=== PATIENT | male | born 1950 | race African-American/Black ===

== ENCOUNTER 2016-10-24 14:32 | Observation (INO) | payer MEDICARE ==
[~2016-10-24] VITALS: Ht 170.2 cm; Wt 51.0 kg
--- NOTE | ~2016-10-24 | ECH ---
Transthoracic Echocardiography Report (TTE) Demographics Patient Name ANDREA REINOSO Date of Study 10/26/2016 Patient Number [id number] Visit Number [id number] Date of 1950 Room Number 433 Accession Number [id number] Gender Male Age 66 year(s) Referring Tyrel Meyers Dealership Manager Taylor Garcia [facility] Physician Physician Interpreting Chilo Angel MD [employer] Sales Representative Physician Supervising Ordering Physician Tyrel Meyers MD, MD/P Nurse Stress Certified Surgical First Assistant Conclusions Summary Technically adequate exam. The estimated left ventricular ejection fraction is 60-65%. Diastolic assessment reveals Grade I diastolic dysfunction. Mild tricuspid regurgitation by color Doppler. There is moderate pulmonary hypertension. The pulmonary pressure (RVSP) is 53 mmHg. Procedure Type of Study TTE procedure:Echo Complete SF. Procedure Date Date: 10/26/2016 Start: 03:03 PM Technical Quality: Adequate visualization Indications:Fever. Additional Indications:EKG changes Appropriate Use Criteria: 9 Height: 67 inches Weight: 112 pounds BSA: 1.58 m Rhythm: Within normal limits HR: 96 bpm BP: 145/65 mmHg M-Mode/2D Measurements LV Diastolic Dimension: 4.18 cm LV Systolic Dimension: 2.68 cm LV Septum Diastolic: 0.88 cm LV PW Diastolic: 0.94 cm AO Root Dimension: 2.02 cm Cardiac Output: 3.59 l/min LA Dimension: 2.65 cm Cardiac Index: 2.27 l/min*m RV Diastolic Dimension: 3.21 cm LA volume index: 21 ml/m LVOT: 1.73 cm LVOT VTI: 15.9 cm RV Base: 2.5 cm LV Stroke volume: 37.36 ml RV Mid: 1.8 cm LV Stroke volume index: 23.65 ml/m RV Length: 6.7 cm Doppler Measurements AV Peak Velocity: 1.38 m/s MV Peak E-Wave: 0.62 m/s AV Peak Gradient: 7.62 mmHg MV Peak A-Wave: 1.06 m/s AV Mean Gradient: 4.78 mmHg MV E/A Ratio: 0.59 LVOT Peak Velocity: 0.82 m/s MV P1/2t: 56.9 msec AV Area (Continuity):1.61 cm MV Deceleration Time: 211.3 msec TR Velocity:3.55 m/s MV Area (PHT): 3.87 cm TR Gradient:50.41 mmHg PV Peak Velocity: 0.91 m/s Estimated RAP:3 mmHg PV Peak Gradient: 3.35 mmHg Estimated RVSP: 53 mmHg Estimated PASP: 53.41 mmHg E' Septal Velocity: 0.06 m/s A' Septal Velocity: 0.12 m/s E' Lateral Velocity: 0.08 m/s A' Lateral Velocity: 0.09 m/s RA Area: 8.51 cm Findings Left Ventricle The left ventricle is normal in size . Diastolic assessment reveals Grade I diastolic dysfunction. Right Ventricle Normal right ventricle structure and function. Left Atrium Normal left atrial size. Right Atrium Normal right atrial size. Mitral Valve Normal mitral valve structure and function. Trivial mitral regurgitation by color Doppler. Aortic Valve Normal aortic valve structure and function. Tricuspid Valve Normal appearing tricuspid valve. Mild tricuspid regurgitation by color Doppler. There is moderate pulmonary hypertension. The pulmonary pressure (RVSP) is 53 mmHg. Pulmonic Valve Normal pulmonic valve structure and function. Pericardial Effusion No evidence of pericardial effusion. Miscellaneous Visualized portions of the aortic root and ascending aorta appear normal in size. Pleural Effusion No evidence of pleural effusion. Signature
--- NOTE | 2016-10-27 12:00 | HP ---
ADMIT: 10/24/2016 RM/LOC: 433 [facility] [id number] [id number] [address] [address] ANDREA REINOSO [address] [place] [address] History and Physical SEX: M AGE: 66 : 1950 DATE OF SERVICE: CHIEF COMPLAINT/HISTORY OF PRESENT ILLNESS: This 66-year-old male is admitted for increasing weakness, anorexia, and a blood sugar of 923. The patient is a type 2 diabetic who had been on Janumet, but has not taken any over the last three days. He has not been feeling well for approximately 2 weeks. He is not eating, drinking, he is weak. He has lost approximately 10 or 11 pounds and is seen today with a blood sugar of 923. He has had no syncope. His potassium is 6, and he is admitted for IV fluids and heart monitoring. Generally, his health has been fair. MEDICATIONS: Include: 1. Proventil two puffs q.i.d. p.r.n. 2. Janumet 50/100 one daily. 3. Advair Diskus 1 puff b.i.d. ALLERGIES: NONE. PAST MEDICAL HISTORY: Includes type 2 diabetes mellitus, gout, asthma, hypertension, history of cervical lymphadenopathy, hypercholesterolemia. PAST SURGICAL HISTORY: Includes normal colonoscopy in 2010. FAMILY HISTORY: There is no family history of diabetes, hypertension, heart disease, or cancer. SOCIAL HISTORY: The patient is recently retired in the last two weeks. He is . He has never smoked. REVIEW OF SYSTEMS: HEENT: The patient has had no sore throat or sinus problems recently. He has no headaches or change in vision. CARDIORESPIRATORY: There is a history of asthma. No history of smoking. No myocardial infarctions, hypertension, palpitations, or edema. GI: No nausea, vomiting, constipation, diarrhea, or bloody stools. He has had anorexia. : No hematuria, dysuria, and no history of diabetic nephropathy. METABOLIC/ENDOCRINE: The patient has had type 2 diabetes mellitus. No history of hypercholesterolemia or thyroid disease. MUSCULOSKELETAL: No systemic arthritis. PHYSICAL EXAMINATION: VITAL SIGNS: Blood pressure is 110/68, temperature 97.8, weight 112 pounds, BMI is 18.64, respirations 16, pulse 70 and regular. GENERAL: The patient is a thin male who is alert, cooperative, oriented x3. HEENT: Revealed dry mucous membranes. Head - normocephalic without exostoses. [place]. Throat within normal limits. NECK: Neck veins not distended. Thyroid not enlarged. CHEST: Clear to percussion and auscultation. HEART: Regular rhythm with no murmur heard. No clinical evidence of cardiomegaly. ADMIT: 10/24/2016 RM/LOC: [address] [place] [address] MR#: [id number] [address] [place] [id number] ANDREA REINOSO [facility] [place] [address] History and Physical SEX: M AGE: 66 : 1950 ABDOMEN: Soft, nontender. Liver is not enlarged. Spleen is not palpable. No abnormal masses are palpated. Femoral pulses are strong and equal bilaterally. GENITALIA: Normal. EXTREMITIES: No cyanosis, clubbing or edema. ASSESSMENT: 1. Type 2 diabetes mellitus out of control. 2. Hyperkalemia. 3. Abnormal liver function tests. 4. Dehydration. 5. History of asthma. PLAN: Admit the patient to the hospital for IV fluids, insulin, and heart monitoring. Tim Sarah MD/ claude JOB #: [id number] CC: Tim Sarah, Attending Physician Tim Sarah, Family Physician
[2016-10-27] MEDS ORDERED: PROAIR RESPICL90 MCG IH (14:22)
[2016-10-27] MEDS ORDERED: ADVAIR 250-501 EACH IH (14:22)
[2016-10-27] MEDS ORDERED: NOVOLIN 70100 UNITS/ SQ (14:22)
--- NOTE | 2016-11-07 11:03 | DS ---
ADMIT: 10/24/2016 RM/LOC: 433 [facility] MR#: [id number] [address] [address] ANDREA REINOSO [address] [place] [address] Discharge Summary SEX: M AGE: 66 : 1950 ADMISSION DATE: 10/24/2016 DISCHARGE DATE: 10/26/2016 HISTORY AND PHYSICAL: Please see the chart. LABORATORY AND X-RAY DATA: Please see the chart. CLINICAL COURSE: This 56-year-old male was admitted to the hospital with symptomatic hyperglycemia and hyperkalemia. The patient is a known diabetic. He has felt quite weak and tired over the last few days. He stopped taking his Janumet. He has not been eating and drinking well. He was seen in the office. His blood sugar was 923 with severe hyperkalemia. He was quite dehydrated, and I placed him in the hospital for hydration and diabetic control. PREVIOUS MEDICAL HISTORY: Generally, his health has been good. He does have type 2 diabetes mellitus and initially was given IV fluids, at 125 mL/h. His blood sugar dropped from 923 down to the 800s. His potassium dropped from 6 into the 5's as his hydration continued and the insulin drip continued. His sugars continued to drop. He began feeling much better. His weakness improved, and he became stronger. I talked to him about him needing insulin. I felt the patient indeed needed to be started on insulin. He was reluctant, but is placed on Novolin 70/30 b.i.d. His insulin drip was discontinued. He was given the Novolin 70/30 only once daily and was placed on a diabetic diet. He also was started on Lovenox 40 mg subcutaneously daily, and he was set up with [facility] [employer] testing strips and lancets to continue monitoring his blood sugars. He did have some ST elevation on his EKGs, but this was felt to be old. Troponin level was done, which was negative, and he was able to be discharged with: FINAL DIAGNOSES: 1. Symptomatic hyperglycemia with hyperkalemia. 2. History of asthma. 3. Type 2 diabetes mellitus. Tim Sarah MD/ rivka JOB #: [id number] CC: Tim Sarah MD, Attending Physician Tim Sarah MD, Family Physician
== END 2016-10-26 19:30 | disposition home or self-care (01) ==
LOC: 4PCU 14:32
DX: E11.65 Type 2 diabetes mellitus with hyperglycemia (principal); E87.5 Hyperkalemia; E86.0 Dehydration; R94.5 Abnormal results of liver function studies; Z87.09 Personal history of other diseases of the respiratory system; Z79.899 Other long term (current) drug therapy; M10.9 Gout, unspecified